=== PATIENT | female | born 1935 | race Caucasian/White ===

== ENCOUNTER → 2016-05-19 | Outpatient (CLI) | payer MEDICARE, BC ==
--- NOTE | 2016-05-19 15:53 | RADRPT ---
PROCEDURE: XR left knee. CLINICAL INDICATION: Knee pain. TECHNIQUE: AP weightbearing, PA weightbearing, lateral weightbearing and sunrise views are availab le for review. COMPARISON: 11/16/2014 FINDINGS: There is a total knee replacement. There is no evidence of loosening of the prosthesis. The osseous structures are normal in mineralization, architecture and alignment No acute fracture or dislocation is seen.No osseous lesions are identified. The soft tissues are unremarkable . IMPRESSION: Unremarkable total knee replacement. RPTAT: HGDB .Dimitris Whitney MD, MD Date Time Electronically viewed and signed by .Dimitris Whitney MD, MD on 05/19/2016 15:53 .B/
--- NOTE | 2016-05-19 15:55 | RADRPT ---
PROCEDURE: XR pelvis/left hip. CLINICAL INDICATION: Hip pain TECHNIQUE: AP pelvis/AP and lateral left hip views performed COMPARISON: 11/16/2014 FINDINGS: There is moderate bilateral hip osteoarthrosis. This is associated with joint space narrowing, subch ondral sclerosis and osteophytosis. There is normal mineralization. No fractures or osseous lesion s are identified. The soft tissues are unremarkable. Levoscoliosis of the lumbar spine. Lower lumbar degenerative disk disease. IMPRESSION: Moderate bilateral hip osteoarthrosis. RPTAT: HGDB .Dimitris Whitney MD, MD Date Time Electronically viewed and signed by .Dimitris Whitney MD, MD on 05/19/2016 15:55 .B/
== END | disposition home or self-care (01) ==
LOC: HKI 14:45
PROVIDERS: ATTEND Orthopaedic Surgery
DX: M51.36 Other intervertebral disc degeneration, lumbar region (principal); M41.26 Other idiopathic scoliosis, lumbar region; M54.16 Radiculopathy, lumbar region; Z96.652 Presence of left artificial knee joint
CPT/HCPCS: 73502; 73564; G0463